=== PATIENT | female | born 1985 | race Caucasian/White ===

== ENCOUNTER → 2020-04-05 10:14 | Outpatient (CLI) | payer OTHER, SELFPAY ==
--- NOTE | 2020-04-05 | DI.US.S_ITS ---
PROCEDURE: US PELVIC COMPLETE INDICATIONS: Unspecified dyspareunia TECHNIQUE: Real-time scanning was performed of the pelvic organs, with image documentation. Additional endovaginal scanning was necessary due to incomplete visualization of the adnexal and endometrial structures by transabdominal scanning. COMPARISON: [facility], , PELVIC COMPLETE, 06/18/2016, 10:25. FINDINGS: Transabdominal scanning: Limited scanning through the kidneys shows no hydronephrosis. No pathologic free abdominal or pelvic fluid. Endovaginal scanning: Uterus: Uterus is normal in size at 5.3 x 6.2 x 10.2 cm. The endometrium measures 16.6 mm in combined thickness with a centrally positioned IUD. Ovaries: Normal right and left ovaries are seen measuring 3.6 x 1.5 x 1.4 cm on the right and 3.5 x 2.4 x 2.1 cm on the left. IMPRESSION: Normal pelvic ultrasound with centrally positioned IUD within the endometrial canal. Dictated by: Bowen Salcedo M.D. on 04/05/2020 at 13:06 Approved by: Bowen Salcedo M.D. on 04/05/2020 at 13:08
== END ==
PROVIDERS: PCP Family Medicine; Referring Provider Family Medicine; Visit Provider Family Medicine
DX: N94.10 Unspecified dyspareunia (principal); T83.32XA Displacement of intrauterine contraceptive device, initial encounter
CPT/HCPCS: 76830; 76856

== ENCOUNTER → 2020-12-20 12:27 | Outpatient (CLI) | payer OTHER, SELFPAY | PROVIDERS: PCP Family Medicine; Visit Provider Family Medicine | DX: R30.0 Dysuria (principal) | CPT/HCPCS: 87077; 87086; 87186 ==

== ENCOUNTER → 2022-10-01 08:44 | Outpatient (CLI) | payer OTHER, SELFPAY ==
[2022-10-01 09:40] LABS: Add Manual Diff / Slide Review NO; Basophils Absolute Auto 100 /uL (0-100); Eosinophils Absolute Auto 100 /uL (0-450); Eosinophils Percent Auto 1.5 % (2-4); Hematocrit 36.8 % (36-46); Hemoglobin 12.2 g/dL (12.0-16.0); Lymphocytes Absolute Auto 1800 /uL (1100-4500); Lymphocytes Percent Auto 25.4 % (25-40); Mean Corpuscular HGB Conc 33.3 % (30-36); Mean Corpuscular Hemoglobin 28.4 PG (26-34); Mean Corpuscular Volume 85.5 fL (80-100); Monocytes Absolute Auto 600 /uL (0-900); Monocytes Percent Auto 8.6 % (3-14); Neutrophils Absolute Auto 4600 /uL (1500-7000); Neutrophils Percent Auto 63.5 % (50-75); Platelet Count 284 X10^3/uL (150-400); White Blood Cell Count 7.2 X10^3/uL (4.5-11.0)
[2022-10-01 09:58] LABS: HEMOLYSIS < 15 (0-50); Iron 46 ug/dL (37-170)
[2022-10-01 10:02] LABS: Alanine Aminotransferase 18 IU/L (<35); Albumin 3.6 g/dL (3.5-5.0); Albumin Globulin Ratio 1.4 (1.0-2.8); Alkaline Phosphatase 76 U/L (38-126); Aspartate Aminotransferase 20 IU/L (14-36); BUN Creatinine Ratio 13.4 (6-22); Bilirubin Total 0.3 mg/dL (0.2-1.3); Blood Urea Nitrogen 11 mg/dL (7-17); Calcium 8.5 mg/dL (8.4-10.2); Carbon Dioxide 30 mmol/L (22-32); Chloride 104 mmol/L (98-107); Estimated Glomerular Filt Rate > 60 mL/min (>60); Globulin 2.6 g/dL (1.7-4.1); Glucose 88 mg/dL (70-100); HEMOLYSIS < 15 (0-50); Potassium 4.4 mmol/L (3.4-5.1); Sodium 136 mmol/L (137-145); Total Protein 6.2 g/dL (6.3-8.2)
[2022-10-01 10:09] LABS: Percent Iron Saturation 13 % (15-50); Total Iron Binding Capacity 343 ug/dL (265-497); Transferrin 258 mg/dL (206-381)
[2022-10-01 10:26] LABS: TSH w/ Reflex to FT4 0.99 uIU/mL (0.47-4.68)
[2022-10-01 11:37] LABS: Follicle Stimulating Hormone 3.13 mIU/mL
== END ==
PROVIDERS: PCP Family Medicine; Referring Provider Family Medicine; Visit Provider Family Medicine
DX: L65.9 Nonscarring hair loss, unspecified (principal); N92.0 Excessive and frequent menstruation with regular cycle; R61 Generalized hyperhidrosis
CPT/HCPCS: 36415; 80053; 83001; 83540; 83550; 84443; 85025

== ENCOUNTER → 2024-06-14 12:04 | Outpatient (CLI) | payer OTHER, SELFPAY ==
[2024-06-14 19:37] LABS: HEMOLYSIS < 15 (0-50); Iron 173 ug/dL (37-170)
[2024-06-14 19:41] LABS: BUN Creatinine Ratio 16.4 (6-22); Blood Urea Nitrogen 12 mg/dL (7-17); Calcium 9.3 mg/dL (8.4-10.2); Carbon Dioxide 27 mmol/L (22-32); Chloride 104 mmol/L (98-107); Cholesterol 182 mg/dL (140-199); Estimated Glomerular Filt Rate > 60 mL/min (>60); Glucose 101 mg/dL (70-100); HDL Cholesterol 69 mg/dL (40-60); HEMOLYSIS 18 (0-50); LDL Cholesterol Calculated 92 mg/dL (<100); Potassium 4.4 mmol/L (3.4-5.1); Sodium 134 mmol/L (137-145); Triglycerides 104 mg/dL (35-150)
[2024-06-14 19:46] LABS: Add Manual Diff / Slide Review NO; Basophils Absolute Auto 100 /uL (0-100); Basophils Percent Auto 0.9 % (0-2); Eosinophils Absolute Auto 200 /uL (0-450); Eosinophils Percent Auto 2.1 % (2-4); Hematocrit 41.9 % (36-46); Lymphocytes Absolute Auto 1900 /uL (1100-4500); Lymphocytes Percent Auto 24.2 % (25-40); Mean Corpuscular HGB Conc 33.5 % (30-36); Mean Corpuscular Volume 89.7 fL (80-100); Monocytes Absolute Auto 500 /uL (0-900); Monocytes Percent Auto 6.5 % (3-14); Neutrophils Absolute Auto 5200 /uL (1500-7000); Neutrophils Percent Auto 66.3 % (50-75); Platelet Count 310 X10^3/uL (150-400); Red Blood Cell Count 4.68 X10^6/uL (4.0-5.2); White Blood Cell Count 7.8 X10^3/uL (4.5-11.0)
[2024-06-14 19:50] LABS: Percent Iron Saturation 67 % (15-50); Total Iron Binding Capacity 257 ug/dL (265-497); Transferrin 229 mg/dL (206-381)
[2024-06-14 20:14] LABS: Thyroid Stimulating Hormone 1.07 uIU/mL (0.47-4.68)
[2024-06-14 20:16] LABS: Ferritin 19 ng/mL (6-137)
== END ==
PROVIDERS: PCP Family Medicine; Visit Provider Family Medicine
DX: R00.2 Palpitations (principal); N92.0 Excessive and frequent menstruation with regular cycle; Z13.6 Encounter for screening for cardiovascular disorders; Z13.1 Encounter for screening for diabetes mellitus
CPT/HCPCS: 80048; 80061; 82728; 83540; 83550; 84443; 85025

== ENCOUNTER → 2024-08-11 11:00 | Outpatient (CLI) | payer OTHER, SELFPAY ==
[2024-08-11 18:55] LABS: HEMOLYSIS 26 (0-50); Iron 128 ug/dL (37-170)
[2024-08-11 19:01] LABS: Alanine Aminotransferase 15 IU/L (<35); Albumin 4.1 g/dL (3.5-5.0); Albumin Globulin Ratio 1.4 (1.0-2.8); Alkaline Phosphatase 69 U/L (38-126); Aspartate Aminotransferase 23 IU/L (14-36); Bilirubin Total 0.6 mg/dL (0.2-1.3); Bilirubin Unconjugated 0.6 mg/dL (0.0-1.1); Cholesterol 203 mg/dL (140-199); Globulin 2.9 g/dL (1.7-4.1); HDL Cholesterol 77 mg/dL (40-60); HEMOLYSIS 23 (0-50); LDL Cholesterol Calculated 114 mg/dL (<100); Triglycerides 61 mg/dL (35-150)
[2024-08-11 19:07] LABS: Percent Iron Saturation 40 % (15-50); Total Iron Binding Capacity 322 ug/dL (265-497); Transferrin 255 mg/dL (206-381)
[2024-08-11 19:32] LABS: Ferritin 10 ng/mL (6-137)
== END ==
PROVIDERS: PCP Family Medicine; Visit Provider Physician Assistant
DX: L70.0 Acne vulgaris (principal); L65.9 Nonscarring hair loss, unspecified; N92.0 Excessive and frequent menstruation with regular cycle; R53.83 Other fatigue; R79.0 Abnormal level of blood mineral
CPT/HCPCS: 80061; 80076; 82728; 83540; 83550

== ENCOUNTER → 2024-10-03 11:37 | Outpatient (CLI) | payer OTHER, SELFPAY ==
[2024-10-03 19:00] LABS: Alanine Aminotransferase 17 IU/L (<35); Albumin 3.9 g/dL (3.5-5.0); Albumin Globulin Ratio 1.5 (1.0-2.8); Alkaline Phosphatase 79 U/L (38-126); Aspartate Aminotransferase 25 IU/L (14-36); Bilirubin Total 0.4 mg/dL (0.2-1.3); Bilirubin Unconjugated 0.1 mg/dL (0.0-1.1); Cholesterol 204 mg/dL (140-199); Globulin 2.6 g/dL (1.7-4.1); HDL Cholesterol 61 mg/dL (40-60); HEMOLYSIS 17 (0-50); LDL Cholesterol Calculated 128 mg/dL (<100); Total Protein 6.5 g/dL (6.3-8.2); Triglycerides 75 mg/dL (35-150)
== END ==
PROVIDERS: PCP Family Medicine; Referring Provider Physician Assistant; Visit Provider Physician Assistant
DX: L70.0 Acne vulgaris (principal); L90.5 Scar conditions and fibrosis of skin; Z79.899 Other long term (current) drug therapy; K13.0 Diseases of lips; L27.1 Localized skin eruption due to drugs and medicaments taken internally
CPT/HCPCS: 80061; 80076